=== PATIENT | male | born 1985 | race Caucasian/White ===

== ENCOUNTER 2021-11-24 17:50 | Emergency (ER) | payer OTHER, SELFPAY ==
[~2021-11-24 17:50] MED LIST: Calcium Chloride 1 GM/10 ML Abboject SYRINGE ONE; Dextrose 50% Abboject 50 ML SYRINGE ONE; EPINEPHrine 1 MG/10 ML Abboject SYRINGE ONE; Magnesium 5 GM/10 ML Abboject SYRINGE ONE; Sodium Bicarb 50 MEQ/50 ML Abboject 8.4% SYRINGE ONE; Succinylcholine 200 MG/10 ml SYRINGE FS ONE
[2021-11-24] MEDS ORDERED: Lorazepam 2 MG/ML VIAL ONE (18:22)
[2021-11-24] MEDS ORDERED: Ondansetron PF 4 MG/2 ML Vial ONE (18:22)
[2021-11-24 18:34] LABS: #Monocytes 0.1 10x3/uL (0.0-1.1); %Basophils 0.2 % (0.0-2.0); %Eosinophils 0.1 % (0.0-6.0); %Lymphocytes 1.3 % (18.0-47.0); %Monocytes 0.4 % (0.0-10.0); %Neutrophils 95.6 % (40.0-75.0); Hemoglobin 17.1 g/dL (13.5-17.5); Mean Corpuscular Hemoglobin 34.3 pg (27.0-33.0); Mean Corpuscular Volume 97.8 fl (81.2-95.1); Mean Platelet Volume 9.5 fl (7.4-10.4); Platelet Count 272 10x3/uL (150-450); RBC Distribution Width 12.5 % (11.5-14.5); Red Blood Cell (RBC) Count 4.99 10x6/uL (4.32-5.72); White Blood Cell (WBC) Count 17.8 10x3/uL (3.5-10.5)
[2021-11-24 18:42] LABS: Acetaminophen Less than 10.0 mcg/mL (10.0-30.0); Alcohol Less than 10 mg/dL (Less than 10); Lipase 82 U/L (8-78); Salicylate Less than 8.0 mg/dL (15.0-30.0)
[2021-11-24 18:43] LABS: ALT (SGPT) 24 U/L (8-55); AST (SGOT) 55 U/L (5-34); Albumin 5.1 g/dL (3.5-5.0); Alkaline Phosphatase 99 U/L (40-110); Anion Gap 34 mmol/L (10-20); BUN (Urea Nitrogen) 15 mg/dL (8.9-20.6); Bilirubin, Total 1.3 mg/dL (0.2-1.2); Calc. Creatinine Clearance 0 mL/min (70-130); Carbon Dioxide 20 mmol/L (22-29); Chloride 93 mmol/L (98-107); Glucose 139 mg/dL (70-105); Potassium 4.8 mmol/L (3.5-5.1); Protein, Total 9.1 g/dL (6.0-8.3); Sodium 142 mmol/L (136-145)
[2021-11-24 18:45] LABS: Calcium 5.7 mg/dL (7.8-10.44)
[2021-11-24 19:05] LABS: CKMB 1.9 ng/mL (0-6.6)
[2021-11-24] MEDS ORDERED: Cefepime 2 GM VIAL ONE (19:26)
[2021-11-24 19:31] LABS: Actual Bicarbonate (HCO3v) 21 mEq/L (22-28); Calcium, Ionized (venous) 0.57 mmol/L (1.16-1.32); Chloride (VBG) 98 mmol/L (98-106); Hemoglobin (Hb) 16.6 g/dL (13.2-17.3); Potassium (VBG) 3.63 mmol/L (3.70-5.30); Puncture Site Other Site; Sodium 139.2 mmol/L (133-146); pH (venous) 7.37 (7.32-7.43)
[2021-11-24 21:06] LABS: Lactic Acid 4.2 mmol/L (0.5-2.2)
[2021-11-24] MEDS ORDERED: Morphine 2 MG/ML VIAL ONE (22:16)
[2021-11-24] MEDS ORDERED: Thiamine HCl 200 MG/2 ML VIAL SLOW IVP SCH (23:45)
[2021-11-24] MEDS ORDERED: Folic Acid 1 MG, Multivitamins, Adult 10 ML in Dextrose 5 %-0.45 % NaCl 1,000 ML IV SCH (23:45)
[2021-11-24] MEDS ORDERED: Lactated Ringer's 1,000 ML IV SCH (23:45)
[2021-11-24] MEDS ORDERED: Lorazepam 2 MG/ML VIAL SLOW IVP PRN (23:47)
[2021-11-25] MEDS ORDERED: Calcium Gluconate 4.6 MEQ in Sodium Chloride 0.9% 100 ML IVPB SCH
[2021-11-25 00:16] LABS: Magnesium 1.2 mg/dL (1.6-2.6)
[2021-11-25] MEDS ORDERED: Thiamine HCl 200 MG/2 ML VIAL ONE (00:24)
[2021-11-25] MEDS ORDERED: Calcium Gluc 4.6 MEQ/10 ML (100 MG/ML) ONE (00:24)
[2021-11-25] MEDS ORDERED: Lorazepam 2 MG/ML VIAL ONE (00:42)
[2021-11-25 00:44] LABS: Troponin I 11.558 ng/mL (< 0.028)
[2021-11-25] MEDS ORDERED: Multivitamins, Adult 10 ML, Folic Acid 1 MG in Dextrose 5 %-0.45 % NaCl 1,000 ML IV SCH (08:00)
[2021-11-25] MEDS ORDERED: Enoxaparin Sodium 40 MG/0.4 ML SYRINGE SC SCH (09:00)
[2021-11-25] MEDS ORDERED: Thiamine HCl 200 MG/2 ML VIAL SLOW IVP SCH (09:00)
[2021-11-26] MEDS ORDERED: Cefepime 2 GM in Sodium Chloride 0.9% 100 ML IVPB SCH (08:00)
== END 2021-11-25 01:07 | disposition expired ==
LOC: CSHERS 17:50
DX: F10.20 Alcohol dependence, uncomplicated (principal); E86.0 Dehydration; E83.51 Hypocalcemia
CPT/HCPCS: 31500; 36415; 71045; 74177; 80053; 80307; 82553; 82805; 83605; 83690; 83735; 84484; 85025; 92950; 93005; 96374; 96375; J0171; J0610; J0692; J2060; J2270; J2405; J2997; J3370; J3411; J3475; J7042; J7120; J7999